=== PATIENT | female | born 1940 | race Two or more races ===

== ENCOUNTER 2018-12-25 13:00 | Inpatient (IN) | payer OTHER ==
[~2018-12-25] VITALS: Ht 152.4 cm; Wt 64.4 kg
[2018-12-25] MEDS ORDERED: GABAPENTIN800 MG PO (14:07)
[2018-12-25] MEDS ORDERED: LOSARTAN-HCTZ1 EAC1 PO (14:07)
[2018-12-25] MEDS ORDERED: VITAMIN D10000 UNIT PO (14:08)
[2018-12-25] MEDS ORDERED: PRAVASTATIN SOD40 MG PO (14:08)
[2018-12-25] MEDS ORDERED: CALCIUM500 M1 PO (14:09)
[2019-01-02] MEDS ORDERED: NEURONTIN800 MG PO (18:38)
[2019-01-02] MEDS ORDERED: PERCOCET 5-3251 EACH PO (18:38)
[2019-01-02] MEDS ORDERED: COLACE100 MG PO (18:38)
[2019-01-02] MEDS ORDERED: CLONAZEPAM1 MG PO (18:38)
[2019-01-02] MEDS ORDERED: MEDROLPACK PO (18:38)
[2019-01-02] MEDS ORDERED: AMOX-CLAV 875-1 EACH PO (18:38)
== END 2019-01-03 12:44 | disposition home or self-care (01) | DRG 460 ==
LOC: EDSTATUS 13:00 → ADM 13:00 → O/R 01-02 05:00 → SURH 01-02 09:45
PROVIDERS: ADMIT Orthopaedic Surgery Orthopaedic Surgery of the Spine
PROC: 0SB40ZZ Excision of Lumbosacral Disc, Open Approach (ICD-10-PCS; 2019-01-02)
PROC: 0SG30J1 Fusion of Lumbosacral Joint with Synthetic Substitute, Posterior Approach, Posterior Column, Open Approach (ICD-10-PCS; principal; 2019-01-02 09:45)
DX: M51.27 Other intervertebral disc displacement, lumbosacral region (principal); M47.27 Other spondylosis with radiculopathy, lumbosacral region